=== PATIENT | female | born 1975 ===

== ENCOUNTER 2017-02-10 19:30 | Inpatient (IN) | payer OTHER ==
[~2017-02-10] VITALS: Ht 157.5 cm; Wt 63.6 kg
[2017-02-10] MEDS ORDERED: PRENTAB26 PO (20:38)
[2017-02-10 20:43] VITALS: Ht 157.5 cm; Wt 63.6 kg
[2017-02-10 20:45] LABS: HEMATOCRIT 35.1 % (37-47); MEAN CELL VOLUME 91.4 fL (80-100); MEAN CORPUSCULAR HEMOGLOBIN 30.2 pg (25-34); PLATELET COUNT 124 K/uL (130-400); RED BLOOD COUNT 3.84 M/uL (4.2-5.4); WHITE BLOOD COUNT 8.96 K/uL (4.8-10.8)
[2017-02-10] MEDS ORDERED: EpHEDrine SULFATE INJ 50 MG/ML AMP ONE (20:47)
[2017-02-10] MEDS ORDERED: BUPIVACAINE 0.25% 30 ML VIAL ONE (20:47)
[2017-02-10] MEDS ORDERED: FENTANYL 2MCG/ML ROPIV 1.25MG/ML 100ML BAG EPI ONE (20:48)
[2017-02-10] MEDS ORDERED: NALOXONE HCL INJ 1 MG in SODIUM CHLORIDE 0.9% 1000ML 1,000 ML IV PRN (21:58)
[2017-02-10] MEDS ORDERED: LACTATED RINGER'S 1000ML 500 ML IV PRN ×2 (21:58→22:57)
[2017-02-10] MEDS ORDERED: NALOXONE HCL INJ 0.4 MG/1 ML VIAL/CARP IV PRN (22:00)
[2017-02-10] MEDS ORDERED: FENTANYL 2MCG/ML ROPIV 1.25MG/ML 100ML BAG EPI PRN (22:00)
[2017-02-10] MEDS ORDERED: NALBUPHINE HCL INJ 10 MG/ML AMP IV PRN (22:00)
[2017-02-10] MEDS ORDERED: DiphenhydrAMINE HCL 50 MG/ML VIAL IV PRN (22:00)
[2017-02-10] MEDS ORDERED: EpHEDrine SULFATE INJ 50 MG/ML AMP IV PRN (22:00)
[2017-02-10] MEDS ORDERED: OXYTOCIN 30 UNITS/500ML NSS IV PRN (23:00)
[2017-02-11] MEDS ORDERED: SUPERCREAM 0.870 % 15GM JAR EXT PRN
[2017-02-11] MEDS ORDERED: BENZOCAINE 20% AER SPR 82.5 GM CAN EXT PRN
[2017-02-11] MEDS ORDERED: OXYTOCIN 30 UNITS/500ML NSS IV PRN
[2017-02-11] MEDS ORDERED: ACETAMINOPHEN/CODEINE 300/30MG TAB PO PRN ×2
[2017-02-11] MEDS ORDERED: LANOLIN OINT EXT PRN ×2
[2017-02-11] MEDS ORDERED: HYDROCORTISONE ACETATE 25 MG SUPP PR PRN
[2017-02-11] MEDS ORDERED: OXYCODONE/ACETAMINOPHEN 5-325 TAB PO PRN
[2017-02-11] MEDS ORDERED: ACETAMINOPHEN 325 MG TAB PO PRN
[2017-02-11] MEDS ORDERED: DIPHTHERIA/TETANUS/PERTUSSIS 0.5 ML SYR/VIAL IM. ONE
[2017-02-11] MEDS ORDERED: NURSING VERBAL MED ORDER ONE (03:00)
--- NOTE | 2017-02-11 07:04 | DELIVERY SUMMARY ---
DATE OF OPERATION: 02/10/2017 Ms. Shanks is a 41-year-old 2, para 2. She was a late arrival for care, first visit was about 34 weeks. Blood type is O positive, rubella immune. Vaginal beta strep negative. She had an uneventful course. We did ultrasound her to confirm her due date and she arrived in active labor, 4 cm with a bloody show and bulging membranes. We hydrated her with IV fluids, got lab tests and then we gave her epidural for pain control which she requested. After this, when she was about 6-7 cm, ruptured her membranes surgically, started her on some pitocin. She quickly went to full dilatation about 3 contractions, pushed out a live male infant via direct occiput anterior position over an intact perineum. There was a nuchal cord which eventually had to be clamped and cut. The infant was suctioned through the mouth and the nose. Body was delivered without difficulty. My own estimation 1 and 5 minute Apgars were 8 and 9 respectively. Cord blood was taken with IV Pitocin running. The placenta was removed intact. Inspection of the perineum revealed no lacerations. Uterus contracted nicely. Hemostasis was good. Estimated blood loss was only 100 mL. I attest to the content of the Intraoperative Record and any orders documented therein. Any exceptions are noted below. RUSSD
[2017-02-11 07:21] LABS: HEMATOCRIT 36.4 % (37-47)
--- NOTE | 2017-02-11 07:38 | Anesthesia Procedure Note ---
Anesthesia Epidural Removal Nt Date & Time Feb 11, 2017 at 07:37 Vital Signs Pain Intensity: 0.0 Notes Mental Status: alert / awake / arousable, participated in evaluation Nausea / Vomiting: adequately controlled Pain: adequately controlled Airway Patency, RR, SpO2: stable & adequate BP & HR: stable & adequate Hydration State: stable & adequate Neuraxial Anesthesia: was administered, sensory block is resolving Anesthetic Complications: no major complications apparent, pt satisfied with anesthetic care Epidural: removed without complications, with tip intact
[2017-02-11] MEDS: DOCUSATE SODIUM 100 MG CAP PO SCH ×2 (08:29→20:23)
[2017-02-11] MEDS: FERROUS SULFATE 325 MG TAB PO SCH (08:29)
[2017-02-11] MEDS: PRENATAL VITAMIN TAB PO SCH (08:29)
--- NOTE | 2017-02-11 10:36 | Progress Note ---
Subjective Feb 11, 2017. Subjective conversation w/ patient Ambulation: ambulating normally Voiding: no voiding problems Passing Gas: Yes Diet Tolerance: Regular Diet Lochia: Small Feeding Type: Breast Feeding Review of Systems Constitutional: + fever Objective Physical Exam General Appearance: WELL-APPEARING Abdomen: non tender Fundus: Firm, Non-Tender Extremities: no pedal edema, no calf tenderness Laboratory Results Last 24 Hours Test 02/10/17 20:30 02/11/17 06:58 White Blood Count 8.96 K/uL Red Blood Count 3.84 M/uL Hemoglobin 11.6 g/dL 11.9 g/dL Hematocrit 35.1 % 36.4 % Mean Corpuscular Volume 91.4 fL Mean Corpuscular Hemoglobin 30.2 pg Mean Corpuscular Hemoglobin Concent 33.0 g/dl RDW Standard Deviation 63.1 fL RDW Coefficient of Variation 18.8 % Platelet Count 124 K/uL Mean Platelet Volume 11.0 fL Assessment and Plan Post- Day#: 1
[2017-02-11] MEDS: IBUPROFEN 600 MG TAB PO PRN ×2 (12:18→16:14)
[2017-02-11 16:30] VITALS: BP 91/57; PULSE 77; TEMP 36.8
[2017-02-11 19:30] VITALS: BP 97/63; PULSE 72; TEMP 36.8
[2017-02-11] MEDS ORDERED: BISACODYL 5 MG TABEC PO SCH (20:00)
[2017-02-12 00:10] VITALS: BP 98/62; PULSE 73; TEMP 36.7
[2017-02-12] MEDS ORDERED: BISACODYL 10 MG SUPP PR PRN (07:00)
[2017-02-12 08:00] VITALS: BP 91/58; PULSE 65; TEMP 36.7
[2017-02-12] MEDS: DOCUSATE SODIUM 100 MG CAP PO SCH (08:48)
[2017-02-12] MEDS: PRENATAL VITAMIN TAB PO SCH (08:48)
[2017-02-12] MEDS: FERROUS SULFATE 325 MG TAB PO SCH (08:48)
--- NOTE | 2017-02-12 09:17 | Progress Note ---
Subjective Feb 12, 2017. Subjective conversation w/ patient Ambulation: ambulating normally Voiding: no voiding problems Passing Gas: Yes Diet Tolerance: Regular Diet Lochia: Small Feeding Type: Breast Feeding Review of Systems Constitutional: + fever Objective Vital Signs Date Time Temp Pulse Resp B/P Pulse Ox O2 Delivery O2 Flow Rate FiO2 02/12/17 08:00 36.7 65 18 91/58 Room Air 02/12/17 00:10 36.7 73 16 98/62 Room Air 02/12/17 00:10 Room Air 02/11/17 19:30 36.8 72 20 97/63 Room Air 02/11/17 16:30 Room Air 02/11/17 16:30 36.8 77 20 91/57 Room Air Physical Exam General Appearance: WELL-APPEARING Respiratory/Chest: lungs clear Abdomen: non tender Fundus: Firm, Non-Tender Extremities: no pedal edema, no calf tenderness Assessment and Plan Post- Day#: 2
--- NOTE | 2017-02-12 09:19 | Discharge Instructions ---
Discharge Instructions Date of Service Feb 12, 2017. Admission Reason for Admission: Check Labor Discharge Discharge Diagnosis / Problem: active labor Discharge Goals Goal(s): Routine recovery after delivery Activity Recommendations Activity Limitations: as noted below ACTIVITY RECOMMENDATIONS: * Gradual return to full activity over the next 2-3 weeks. * No lifting - nothing heavier than baby over the next 2-3 weeks. * Do not engage in vigorous exercise, sexual activity or sports until cleared by your physician. * Do not drive or operate any motorized equipment until cleared by your physician. * You may shower/bathe daily. DIET: Resume Previous Diet If Breast-feeding: * Increase caloric intake by 500 calories, eat 3 well balanced meals, 2 high protein snacks a day and drink 6-8 8oz. glasses of fluid per day. BREAST CARE: If you are not breast feeding: * Wear a supportive bra 24 hours a day for one to two weeks. * Avoid stimulating your breasts and nipples as much as possible during the first few weeks after delivery. * When taking a shower, have the warm water hit your back, not breasts. * When your breasts feel full, apply ice packs. Usually three to four times a day helps ease the discomfort. * Take a mild pain medication (Tylenol / Motrin) when you are uncomfortable. If breast feeding: * Use breast milk to lubricate nipples. Lansinoh cream may be used for sore nipples. You do not need to remove cream prior to breast feeding. If using a different brand of cream, check the label for directions regarding removal of cream prior to nursing. * Wear a supportive bra. * If having problems with breasts or breast feeding, call a investment consultant or your health care provider. OVER THE COUNTER MEDICATION: * For discomfort or pain, you may use Acetaminophen (Tylenol), Ibuprofen (Advil ), or Naproxen (Aleve) following the package directions. * For constipation you may use Colace following the package directions. SPECIAL CARE INSTRUCTIONS: * Vaginal rest (no tampons, douching, intercourse) until after doctor 's visit. * control as discussed with doctor. * Verbalizes understanding of car seat law as reviewed with patient nursing. * Car Seat hand-out given and reviewed with patient by nursing. * Shaken baby information reviewed with patient by nursing. Call you doctor if: * Temperature greater than or equal to 100.4 degrees F or 38.0 degrees C. Take your temperature twice daily for a week. * Bleeding becomes heavier than the heaviest part of your period - saturating a sanitary pad within an hour. * Passing large clots. * Bleeding has a foul smelling odor. * Signs and symptoms of phlebitis: leg pain, warm, red or swollen area on leg. * "Baby Blues" lasting longer than two weeks. ++ If you have had a and incision has increased pain, redness, swelling, presence of any drainage, or if the incision starts to open up. If you have any questions or concerns, call your health care practitioner at [phone]. FOLLOW-UP VISIT: Please call the office at to schedule a 6 week examination. . Instructions / Follow-Up Instructions / Follow-Up ACTIVITY RECOMMENDATIONS: * Gradual return to full activity over the next 2-3 weeks. * No lifting - nothing heavier than baby over the next 2-3 weeks. * Do not engage in vigorous exercise, sexual activity or sports until cleared by your physician. * Do not drive or operate any motorized equipment until cleared by your physician. * You may shower/bathe daily. DIET: Resume Previous Diet If Breast-feeding: * Increase caloric intake by 500 calories, eat 3 well balanced meals, 2 high protein snacks a day and drink 6-8 8oz. glasses of fluid per day. BREAST CARE: If you are not breast feeding: * Wear a supportive bra 24 hours a day for one to two weeks. * Avoid stimulating your breasts and nipples as much as possible during the first few weeks after delivery. * When taking a shower, have the warm water hit your back, not breasts. * When your breasts feel full, apply ice packs. Usually three to four times a day helps ease the discomfort. * Take a mild pain medication (Tylenol / Motrin) when you are uncomfortable. If breast feeding: * Use breast milk to lubricate nipples. Lansinoh cream may be used for sore nipples. You do not need to remove cream prior to breast feeding. If using a different brand of cream, check the label for directions regarding removal of cream prior to nursing. * Wear a supportive bra. * If having problems with breasts or breast feeding, call a investment consultant or your health care provider. OVER THE COUNTER MEDICATION: * For discomfort or pain, you may use Acetaminophen (Tylenol), Ibuprofen (Advil ), or Naproxen (Aleve) following the package directions. * For constipation you may use Colace following the package directions. SPECIAL CARE INSTRUCTIONS: * Vaginal rest (no tampons, douching, intercourse) until after doctor 's visit. * control as discussed with doctor. * Verbalizes understanding of car seat law as reviewed with patient nursing. * Car Seat hand-out given and reviewed with patient by nursing. * Shaken baby information reviewed with patient by nursing. Call you doctor if: * Temperature greater than or equal to 100.4 degrees F or 38.0 degrees C. Take your temperature twice daily for a week. * Bleeding becomes heavier than the heaviest part of your period - saturating a sanitary pad within an hour. * Passing large clots. * Bleeding has a foul smelling odor. * Signs and symptoms of phlebitis: leg pain, warm, red or swollen area on leg. * "Baby Blues" lasting longer than two weeks. ++ If you have had a and incision has increased pain, redness, swelling, presence of any drainage, or if the incision starts to open up. If you have any questions or concerns, call your health care practitioner at [phone]. FOLLOW-UP VISIT: Please call the office at to schedule a 6 week examination. Current Hospital Diet Patient's current hospital diet: Regular Diet, Regular OB Diet Discharge Diet Recommended Diet: Regular Diet Pending Studies Studies pending at discharge: no Medical Emergencies . Who to Call and When: Medical Emergencies: If at any time you feel your situation is an emergency, please call 911 immediately. . Non-Emergent Contact Non-Emergency issues call your: Nuclear Instructor Call Non-Emergent contact if: temperature is above 100.5 . . "Provider Documentation" section prepared by Adalberto Arora. . VTE Core Measure Inpt VTE Proph given/why not?: Treatment not indicated
[2017-02-12 15:06] VITALS: BP_DIAS 58; PULSE 65; TEMP 36.7
== END 2017-02-12 15:10 | disposition home or self-care (01) | DRG 775 ==
LOC: C.LD 19:30 → C.OPB 19:30 → C.LD 20:11 → C.OBG 02-11 14:42
PROVIDERS: ADMIT Obstetrics & Gynecology; ATTEND Obstetrics & Gynecology
PROC: 10E0XZZ Delivery of Products of Conception, External Approach (ICD-10-PCS; principal; 2017-02-10)
DX: O69.81X0 Labor and delivery complicated by cord around neck, without compression, not applicable or unspecified (principal); Z3A.37 37 weeks gestation of pregnancy; Z37.0 Single live birth